=== PATIENT | female | born 1970 | race Caucasian/White ===

== ENCOUNTER 2019-01-30 19:12 | Emergency (ER) | payer OTHER ==
[~2019-01-30] VITALS: Ht 152.4 cm; Wt 106.8 kg
[~2019-01-30 19:12] MED LIST: BENADRYL25 M2; LORTAB 7.5/5001 TAB; NEXIUM 40MG40 MG PO; ORAMORPH SR15 MG PO; PRENATAL1 TA1 PO; ZANAFLEX2 MG; ZITHROMAX Z PA250 MG PO
[2019-01-30 19:21] VITALS: BP 153/94; TEMP 98
[2019-01-30] MEDS ORDERED: AMITRIPTYLINE H50 M1 PO ×2 (19:40→19:41)
[2019-01-30] MEDS ORDERED: ZANTAC 150MG T150 MG PO (19:41)
[2019-01-30] MEDS ORDERED: TOPROL XL 50MG50 MG PO (19:42)
[2019-01-30] MEDS ORDERED: PROTONIX 40MG T40 MG PO (19:42)
[2019-01-30] MEDS ORDERED: DULCOLAX TAB5 MG PO (19:43)
[2019-01-30] MEDS ORDERED: ARYMO ER15 MG PO (19:44)
[2019-01-30] MEDS ORDERED: NORCO 325 MG-51 TAB PO (19:45)
[2019-01-30 19:53] VITALS: PULSE 102
== END 2019-01-30 19:53 | disposition home or self-care (01) ==
LOC: COL.ER 19:12
DX: S60.410A Abrasion of right index finger, initial encounter (principal); Z90.49 Acquired absence of other specified parts of digestive tract; Z90.710 Acquired absence of both cervix and uterus; W54.1XXA Struck by dog, initial encounter

== ENCOUNTER 2024-06-20 09:21 | Day surgery (SDC) | payer OTHER ==
[~2024-06-20] VITALS: Ht 154.9 cm; Wt 108.8 kg
[2024-06-20] VITALS (7 sets, daily range): BP systolic 109–145; BP diastolic 54–96; PULSE 75–92; TEMP 97.6
[~2024-06-20 09:21] MED LIST changes: +AMITRIPTYLINE H50 M1 PO; +ARYMO ER15 MG PO; +DULCOLAX TAB5 MG PO; +LR 1,000 ML IV SCH; +NORCO 325 MG-51 TAB PO; +Ondansetron 4 MG/2 ML VIAL IV PRN; +PROTONIX 40MG T40 MG PO; +TOPROL XL 50MG50 MG PO; +ZANTAC 150MG T150 MG PO
[2024-06-20] MEDS ORDERED: MS CONTIN 115 MG/TAB PO (10:27)
[2024-06-20] MEDS ORDERED: CYMBALTA 20MG20 MG PO (10:28)
[2024-06-20] MEDS ORDERED: SOMA 350MG350 MG/TAB PO (10:30)
[2024-06-20] MEDS ORDERED: Lidocaine PF 2% (20 MG/ML) 5 ML VIAL ONE (11:14)
--- NOTE | 2024-06-20 12:05 | NUR ---
1205: PATIENT (ALERT AND AWAKE) AMBULATED TO RESTROOM WITH 2 ASSIST. 1208: PATIENT AMBULATED TO RECLINER WITH 2 ASSIST AND STEADY GAIT. DENIES PAIN, NAUSEA AND SHORTNESS OF BREATH. BREATHING REGULAR AND UNLABORED ON ROOM AIR. SKIN WARM AND DRY. IV IN PLACE. NURSE HANDOFF COMPLETED IN ROOM. SEE CHART FOR VITAL SIGNS. PATIENT HAD A MUFFIN, PEPSI AND APPLE JUICE. FOOD AND DRINK TOLERATED WELL, NO DYSPHAGIA. CALL LIGHT IN REACH. SPOUSE PRESENT IN ROOM.
--- NOTE | 2024-06-20 12:50 | NUR ---
1224: PATIENT AMBULATED TO RESTROOM WITH STEADY GAIT. 1230: PATIENT BACK IN ROOM. MET WITH PATIENT AND SPOUSE TO DISCUSS PROCEDURE. 1243: DISCHARGE TEACHING COMPLETED WITH PRINTED EDUCATION AND INSTRUCTIONS SENT HOME WITH PATIENT. PATIENT VERBALIZED UNDERSTANDING OF TEACHING. 1245: IV REMOVED. GAUZE AND COBAN PLACED OVER SITE. 1250: PATIENT DISCHARGED HOME WITH SPOUSE TRANSPORT.
== END 2024-06-20 12:50 | disposition home or self-care (01) ==
LOC: SDCO 09:21
DX: K59.00 Constipation, unspecified (principal); K29.50 Unspecified chronic gastritis without bleeding; E66.9 Obesity, unspecified; G89.29 Other chronic pain; R19.7 Diarrhea, unspecified; Z79.899 Other long term (current) drug therapy; Z79.891 Long term (current) use of opiate analgesic
CPT/HCPCS: J2704; J7120